=== PATIENT | female | born 1990 | race African-American/Black ===

== ENCOUNTER 2020-08-04 11:03 | Emergency (ER) | payer OTHER ==
[~2020-08-04] VITALS: Ht 170.2 cm; Wt 122.7 kg
[2020-08-04 12:34] LABS: GLUCOSE, URINE (UA) MANUAL NEGATIVE (NEGATIVE); KETONE, URINE MANUAL OBSCURED mg/dL (NEGATIVE)
[2020-08-04 12:35] LABS: BILIRUBIN, URINE MANUAL OBSCURED (NEGATIVE); UROBILINOGEN, URINE MANUAL OBSCURED mg/dl (NORMAL)
[2020-08-04] MEDS ORDERED: NS 1,000 ML IV ONE (12:35)
[2020-08-04 12:43] LABS: RBC, URINE TNTC /hpf (0-3); SQUAMOUS EPITHELIAL CELL URINE SMALL AMOUNT /hpf (SMALL AMT)
[2020-08-04 12:44] LABS: BACTERIA, URINE MOD AMOUNT; HYALINE CAST, URINE NONE SEEN /lpf (0-1); MUCUS, URINE LARGE AMOUNT (NEGATIVE)
[2020-08-04 13:12] LABS: BASO % 0.2 % (0.0-1.0); EOS # 0.3 10^3/uL (0.0-0.5); EOS % 3.5 % (0.0-3.0); HEMATOCRIT 38.8 % (36.0-47.0); HEMOGLOBIN 12.5 g/dl (12.0-15.5); LYMPH # 1.8 10^3/uL (1.5-5.0); LYMPH % 22.8 % (24.0-44.0); MEAN CORPUSCULAR HEMOGLOBIN 29.2 pg (27.0-33.0); MEAN CORPUSCULAR HGB CONC 32.2 g/dl (32.0-36.5); MEAN CORPUSCULAR VOLUME 90.7 fl (80.0-96.0); MONO # 0.5 10^3/uL (0.0-0.8); MONO % 6.6 % (2.0-8.0); NEUTROPHILS # 5.4 10^3/uL (1.5-8.5); NEUTROPHILS % 66.8 % (36.0-66.0); PLATELET COUNT, AUTOMATED 274 10^3/uL (150-450); RED BLOOD COUNT 4.28 10^6/uL (4.00-5.40); WHITE BLOOD COUNT 8.1 10^3/uL (4.0-10.0)
[2020-08-04 13:23] LABS: INR 1.04; PROTHROMBIN TIME 13.8 SECONDS (12.5-14.3)
[2020-08-04 13:24] LABS: PARTIAL THROMBOPLASTIN TIME 28.4 SECONDS (24.2-38.5)
[2020-08-04 13:47] LABS: RSV AMPLIFICATION NEGATIVE (NEGATIVE)
[2020-08-04 13:49] LABS: ALBUMIN 3.8 GM/DL (3.2-5.2); ALT/SGPT 39 U/L (12-78); AMYLASE 44 U/L (25-115); BILIRUBIN,DIRECT 0.2 MG/DL (0.0-0.2); BILIRUBIN,TOTAL 0.6 MG/DL (0.2-1.0); CK-MB VALUE MASS < 1.0 NG/ML (<3.6); CPK CREATINE PHOSPHOKINASE 126 U/L (26-192); LIPASE 84 U/L (73-393); MB/CK RELATIVE INDEX 0.79 (< OR =4); TOTAL PROTEIN 8.4 GM/DL (6.4-8.2); TROPONIN I < 0.02 NG/ML (< 0.10)
[2020-08-04] MEDS ORDERED: ISOVUE-370 76% 100ML VIAL As Ordered ONE (13:50)
[2020-08-04 14:37] LABS: CHLAMYDIA DNA AMPLIFICATION POSITIVE (NEGATIVE); GC DNA AMPLIFICATION NEGATIVE (NEGATIVE)
--- NOTE | 2020-08-04 14:45 | REP ---
INDICATION: intermittent chest pain, s/p cardiac stents, stopped A/C. COMPARISON: None. TECHNIQUE: CT of the chest with IV contrast. FINDINGS: There are no emboli in the pulmonary trunk or central pulmonary arteries. There are no emboli in the pulmonary artery lobar segment branches. There are no infiltrates or pleural effusions. There is a 7 mm lung nodule in the right upper lobe on image 40. This is a category 3 lung nodule and six-month follow-up chest CT is recommended for further evaluation. There are no other lung nodules or masses. There is no mediastinal or hilar lymph node enlargement. There is no axillary lymphadenopathy. The thoracic aorta is unremarkable. Cardiac size is normal. There are no pericardial effusions. IMPRESSION: There is a 7 mm right upper lobe lung nodule. Follow-up chest CT in 6 months is recommended. Otherwise, essentially negative CT study of the chest. <Electronically signed by Gene Perez > 08/04/20 [id number]
--- NOTE | 2020-08-04 14:52 | REP ---
INDICATION: lower abd pain. COMPARISON: None. TECHNIQUE: CT of the abdomen and pelvis with IV contrast, without bowel contrast. The study is performed contiguously with the chest CT this same date. FINDINGS: The hepatic parenchyma is homogeneous. The gallbladder, pancreas and spleen are normal size and unremarkable. The adrenals and kidneys are unremarkable. The abdominal aorta is unremarkable. There is no periaortic adenopathy or mass. There is an endovascular stent in the right iliac vein compatible with the clinical history of May-Thurner syndrome. The bowel and mesentery are unremarkable. Pelvis: There is a 3.5 cm right adnexal cyst. The left adnexa is unremarkable. Uterus is unremarkable. The bladder is unremarkable. There is no adenopathy or ascites. The pelvic bowel loops are unremarkable. IMPRESSION: There is a 3.5 cm right adnexal cyst. There is an endovascular stent in the right iliac vein, compatible with the clinical history of May-Thurner syndrome. <Electronically signed by Gene Perez > 08/04/20 [id number]
[2020-08-04] MEDS ORDERED: DOXYCYCLINE HYCLATE 100MG TABLET PO ONE (15:15)
[2020-08-04] MEDS ORDERED: DOXY100C37 PO (15:45)
[2020-08-04] MEDS ORDERED: FLAG500T PO (15:45)
--- NOTE | 2020-08-04 16:43 | REP ---
INDICATION: pelvic pain. COMPARISON: Abdomen/pelvis CT performed earlier today. There are no comparison ultrasound studies. TECHNIQUE: Multiple sonographic images of the pelvis including transabdominal, endovaginal and doppler ultrasound. FINDINGS: The uterus is anteverted and normal size measuring 7.9 x 5.1 x 6.3 cm. The endometrium is not thickened measuring 2.5 mm. Right ovary: The right ovary measures 3.2 x 3.8 x 3.3 cm and is normal size. There is a 3.1 x 2.6 x 3.0 cm right ovarian cyst. There is vascular flow in the right ovary with the Doppler resistive index in the parenchymal arteries measuring 0.71. Left ovary: The left ovary could not be visualized by ultrasound at this time. With color Doppler ultrasound there are numerous dilated vessels surrounding the uterus, suggestive of pelvic congestion. These are much more apparent by ultrasound than on the comparison CT. IMPRESSION: There is a 3.1 cm right ovarian cyst. There are numerous dilated vessels surrounding the uterus suggestive of pelvic congestion. These are much more apparent by ultrasound than on the comparison CT. The left ovary could not be visualized. <Electronically signed by Geen Perez > 08/04/20 [id number]
[2020-08-04] MEDS ORDERED: metroNIDAZOLE (FLAGYL) 500MG TABLET PO ONE (16:50)
[2020-08-04] MEDS ORDERED: MACR100C43 PO (16:51)
[2020-08-04] MEDS ORDERED: NITROFURANTOIN (MACROBID) 100 MG CAP PO ONE (16:55)
[2020-08-04 17:07] VITALS: BP 113/83
--- NOTE | 2020-08-04 19:30 | ECGEPIP ---
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
--- NOTE | 2020-08-07 19:26 | ED PDOC ---
Post-Departure Follow-Up certified letter sent to pt re formal read of cta chest and ct abd/p needs fu. o btain pcp who pt establishes w and fax there Flaco De León MD Aug 07, 2020 19:26
== END 2020-08-04 17:11 | disposition home or self-care (01) ==
LOC: M ED 11:03
DX: N39.0 Urinary tract infection, site not specified (principal); R31.9 Hematuria, unspecified; N93.9 Abnormal uterine and vaginal bleeding, unspecified; A74.9 Chlamydial infection, unspecified; N76.0 Acute vaginitis; R91.1 Solitary pulmonary nodule; E27.8 Other specified disorders of adrenal gland; N83.201 Unspecified ovarian cyst, right side; N94.89 Other specified conditions associated with female genital organs and menstrual cycle; I87.1 Compression of vein; Z91.040 Latex allergy status; F17.200 Nicotine dependence, unspecified, uncomplicated
CPT/HCPCS: 71275; 74177; 76830; 76856; 80047; 80076; 81000; 81015; 82150; 82550; 82553; 83690; 84484; 84702; 85025; 85610; 85730; 87086; 87210; 87631; 87661; 93005; 93976; 96360; 96361; 99284; Q9967

== ENCOUNTER → 2020-09-12 | Outpatient (REF) | payer MEDICAID, OTHER ==
[~2020-09-12] MED LIST: DOXY100C37 PO; FLAG500T PO; MACR100C43 PO
[2020-09-12 14:50] LABS: CHOLESTEROL RISK RATIO 2.787 (<5); FREE T4 0.94 NG/DL (0.76-1.46); THYROID STIMULATING HORMONE 1.11 uIU/ML (0.358-3.740)
[2020-09-12 15:51] LABS: HEMOGLOBIN A1c 5.2 %
== END ==
LOC: M PLALAB 10:15
PROVIDERS: ATTEND Advanced Practice Midwife
DX: R63.5 Abnormal weight gain (principal)

== ENCOUNTER → 2020-12-13 | Outpatient (CLI) | payer MEDICAID ==
[~2020-12-13] MED LIST changes: -DOXY100C37 PO; +DOXY1CAP62 PO
--- NOTE | 2020-12-13 14:31 | REP ---
INDICATION: CYST RIGHT OVARY. COMPARISON: Pelvic ultrasound dated 08/04/2020. TECHNIQUE: Multiple ultrasonographic images of the pelvis including transabdominal, endovaginal and Doppler ultrasound. FINDINGS: The uterus is anteverted and slightly enlarged measuring 11.2 x 4.2 x 5.4 cm. There are dilated uterine vessels, as previously. This may represent pelvic congestion in the appropriate clinical setting. The endometrium is not thickened measuring 11 mm. Right ovary: The right ovary measures 3.6 x 2.1 x 1.8 cm and is normal size. There is no dominant mass or cyst. The 3.1 cm right ovarian cyst identified on the comparison ultrasound has involuted. Left ovary: The left ovary measures 2.2 x 2.1 x 1.8 cm and is normal size. There is a dominant follicle measuring 1.8 x 1.6 x 1.5 cm. The left ovary cannot be visualized on the comparison ultrasound. There is vascular flow in both ovaries. The Doppler resistive index in the parenchymal arteries of the right ovary is 0.58 and left ovary 0.53. IMPRESSION: The previous right ovarian cyst has involuted. There is a left ovarian follicle measuring up to 1.8 cm. Dilated uterine vessels surrounding the uterus are again identified with color Doppler imaging. There is may represent pelvic congestion in the appropriate clinical setting. <Electronically signed by Gene Perez > 12/13/20 [id number]
== END ==
LOC: M WHC 13:41
PROVIDERS: ATTEND Advanced Practice Midwife
DX: N83.201 Unspecified ovarian cyst, right side (principal)

== ENCOUNTER 2021-02-08 10:18 | Emergency (ER) | payer MEDICAID ==
[~2021-02-08] VITALS: Ht 170.2 cm; Wt 127.7 kg
[2021-02-08 10:19] VITALS: BP 127/60
== END 2021-02-08 10:26 | disposition left against medical advice (07) ==
LOC: M ED 10:18
DX: Z53.21 Procedure and treatment not carried out due to patient leaving prior to being seen by health care provider (principal)

== ENCOUNTER 2021-02-13 09:34 | Emergency (ER) | payer MEDICAID ==
[~2021-02-13] VITALS: Ht 170.2 cm; Wt 136.4 kg
[2021-02-13] MEDS ORDERED: dexameTHASONE 20MG/5ML VIAL (J1100 PER 1MG) IV ONE (10:10)
[2021-02-13 10:15] VITALS: BP 135/80
[2021-02-13 10:51] LABS: BASO % 0.4 % (0.0-1.0); EOS # 0.4 10^3/uL (0.0-0.5); EOS % 6.3 % (0.0-3.0); HEMATOCRIT 41.4 % (36.0-47.0); HEMOGLOBIN 13.9 g/dl (12.0-15.5); LYMPH % 30.4 % (24.0-44.0); MEAN CORPUSCULAR HEMOGLOBIN 29.4 pg (27.0-33.0); MEAN CORPUSCULAR HGB CONC 33.6 g/dl (32.0-36.5); MEAN CORPUSCULAR VOLUME 87.5 fl (80.0-96.0); MONO # 0.5 10^3/uL (0.0-0.8); MONO % 7.6 % (2.0-8.0); NEUTROPHILS # 3.7 10^3/uL (1.5-8.5); PLATELET COUNT, AUTOMATED 338 10^3/uL (150-450); RED BLOOD COUNT 4.73 10^6/uL (4.00-5.40); WHITE BLOOD COUNT 6.7 10^3/uL (4.0-10.0)
[2021-02-13] MEDS: COMBIVENT RESPIMAT 100-20MCG INHALER 4GM INH SCH ×3 (11:01→12:51)
[2021-02-13 11:06] LABS: INR 1.05; PROTHROMBIN TIME 14.2 SECONDS (12.7-14.5)
[2021-02-13 11:07] LABS: PARTIAL THROMBOPLASTIN TIME 31.4 SECONDS (25.9-37.0)
--- OUTSIDE RECORDS SUMMARY | 2021-02-13 11:11 | CCD ---
Author Author [facility] Organization [facility] Address Unknown Phone Unavailable Care Team Providers Care Oxygen Equipment Technician Name Role Phone Denice Zhao Unavailable PROBLEMS Type Condition ICD9-CM Code ZMK60-AI Code Onset Dates Condition S tatus W/U Status Risk SNOMED Code Notes Problem Pelvic congestion syndrome N94.89 Active confirmed 83189884 ALLERGIES Allergen (clinical drug ingredient) Drug/Non Drug Allergy do cumented on EMR Reaction Allergy Type Onset Date Status Latex latex rash Non Drug Allergy Active ENCOUNTERS from 1990 to 2020-12-30 Encounter Location Date Provider Diagnosis [facility] [address] [place] [address] [place] [address] Dec, Denice Zhao IMMUNIZATIONS No Information SOCIAL HISTORY Tobacco Use: Social History Observation Description Date Details (start date - stop date) Current Smoker Sex Assigned At : Social History Observation Description Sex Assigned At Unknown Domestic Violence: Question Answer Notes Status: No history of abuse Tobacco Use: Question Answer Notes Are you a: current smoker REASON FOR REFERRAL No Information VITAL SIGNS No information MEDICATIONS Medication SIG (Take, Route, Frequency, Duration) Notes Start Da te End Date Status Nexplanon Active PROCEDURES No Information RESULTS No Results REASON FOR VISIT Results MEDICAL (GENERAL) HISTORY Type Description Date Medical History ovarian cyst Medical History may thurner-has multiple stents Surgical History cardiac stent Hospitalization History surgery Goals Section No Information Health Concerns No Information MEDICAL EQUIPMENT No Information MENTAL STATUS No Information FUNCTIONAL STATUS No Information ASSESSMENTS No Information PLAN OF TREATMENT No Information Insurance Providers Payer Name Payer Address Payer Phone Insured Name Patient Relati onship to Insured Coverage Start Date Coverage End Date MEDICAID [place] [address] [place] [address] AMY GARCIA self
--- OUTSIDE RECORDS SUMMARY | 2021-02-13 11:12 | CCD ---
Author Author [facility] Organization [facility] Address Unknown Phone Unavailable Support Name Relationship Address Phone JADA Next Of Kin [phone] [place] [address] SK* Next Of Kin [address] [place] [address] DIS[place] [address] [place] [address] Unavailable Re-disclosure Warning The records that you are about to access may contain information from federally-assisted alcohol or drug abuse programs. If such information is present, then the following federally mandated warning applies: This information has been disclosed to you from records protected by federal confidentiality rules (42 CFR part 2). The federal rules prohibit you from making any further disclosure of this information unless further disclosure is expressly permitted by the written consent of the person to whom it pertains or as otherwise permitted by 42 CFR part 2. A general authorization for the release of medical or other information is NOT sufficient for this purpose. The Federal rules restrict any use of the information to criminally investigate or prosecute any alcohol or drug abuse patient.The records that you are about to access may contain highly sensitive health information, the redisclosure of which is protected by Article 27-F of the [facility] Public Health law. If you continue you may have access to information: Regarding HIV / AIDS; Provided by facilities licensed or operated by the [facility] Office of Mental Health; or Provided by the [facility] Office for People With Developmental Disabilities. If such information is present, then the following [facility] mandated warning applies: This information has been disclosed to you from confidential records which are protected by state law. State law prohibits you from making any further disclosure of this information without the specific written consent of the person to whom it pertains, or as otherwise permitted by law. Any unauthorized further disclosure in violation of state law may result in a fine or longterm sentence or both. A general authorization for the release of medical or other information is NOT sufficient authorization for further disc losure. Encounters Encounter Providers Location Date Indications Data Source(s ) Unknown [address] [facility] [address] 12/26/2020 12:00:00 AM EDT eCW1 ([facility]) Outpatient [address] [facility] [address] 09/12/2020 12:00:00 AM EDT eCW1 ([facility]) Medications Medication Brand Name Start Date Product Form Dose Route Admi nistrative Instructions Pharmacy Instructions Status Indications Reaction Description Data Source(s) Metronidazole 500 MG Oral Tablet METRONIDAZOLE 08/05/2020 12:0 0:00 AM EDT tablet 14 TAKE ONE TABLET BY MOUTH TWICE A DAY TAKE ONE TABLET BY MOUTH TWICE A DAY SOLD: 08/05/2020 [facility] 100 mg 08/05/2020 12:00:00 AM EDT capsule 10 TAKE ONE CAPSULE BY MOUTH TWICE A DAY TAKE ONE CAPSULE BY MOUTH TWICE A DAY SOLD: 08/05/2020 [facility] 100 mg 08/05/2020 12:00:00 AM EDT capsule 14 TAKE ONE CAPSULE BY MOUTH EVERY 12 HOURS TAKE ONE CAPSULE BY MOUTH EVERY 12 HOURS SOLD: 08/05/2020 [facility] Insurance Providers Payer name Policy type / Coverage type Policy ID Covered republican ID Covered republican's relationship to [place] Policy [place] Plan Information [employer] [id number] SP [id number] [employer] [id number] SP [id number] [facility] MEDICAID [id number] SP [id number] Problems, Conditions, and Diagnoses Code Display Name Description Problem Type Effective Dates Data Source(s) N94.89 [id number] Pelvic congestion syndrome Problem 12:00:00 AM EDT eCW1 ([facility]) Surgeries/Procedures Procedure Description Date Indications Data Source(s) Medication: 1% Lidocaine with Epinephrine Dilutent 09/12/2020 12:00:00 AM EDT eCW1 ([facility]) Results ID Date Data Source [id number] 09/16/2020 02:41:00 PM EDT [facility] Name Value Range Interpretation Code Description Data Elle rce(s) Supporting Document(s) SARS-CoV-2 (COVID-19) RNA [Presence] in Respiratory specimen by RAYSA with probe detection Not Detected [facility] This lab was ordered by [facility] and reported by [employer] ID Date Data Source LIPID PANEL (CARDIAC RISK) 09/12/2020 12:00:00 AM EDT eCW1 ( [facility]) Name Value Range Interpretation Code Description Data Elle rce(s) Supporting Document(s) Cholesterol in HDL [Moles/volume] in Serum or Plasma 47 >40 HDL CHOLESTEROL eCW1 ([facility]) Cholesterol in LDL [Mass/volume] in Serum or Plasma by calculation 73 <100 LDL CHOLESTEROL eCW1 ([facility]) Cholesterol [Moles/volume] in Serum or Plasma 131 <200 CHOLESTEROL LEVEL eCW1 ([facility]) Triglyceride [Mass/volume] in Serum or Plasma by calculation 57 <150 TRIGLYCERIDES LEVEL eCW1 ([facility]) 2.787 <5 CHOLESTEROL RISK RATIO eCW1 ([facility]) 84 NON-HDL-C eCW1 ([facility]) ID Date Data Source [id number] 09/12/2020 12:00:00 AM EDT eCW1 ([facility]) Name Value Range Interpretation Code Description Data Elle rce(s) Supporting Document(s) Hemoglobin A1c/Hemoglobin.total in Blood 5.2 HEMOGLOBIN A1c eCW1 ([facility]) ID Date Data Source FREE T4 & TSH PANEL 09/12/2020 12:00:00 AM EDT eCW1 ([facility]) Name Value Range Interpretation Code Description Data Elle rce(s) Supporting Document(s) 1.110 0.358-3.740 THYROID STIMULATING HORM ONE eCW1 ([facility]) 0.94 0.76-1.46 FREE T4 eCW1 ([facility]) ID Date Data Source [id number] 09/09/2020 01:54:00 PM EDT [facility] Name Value Range Interpretation Code Description Data Elle rce(s) Supporting Document(s) SARS-CoV-2 (COVID-19) RNA [Presence] in Respiratory specimen by RAYSA with probe detection Not Detected [facility] This lab was ordered by [facility] and reported by [employer]. ID Date Data Source [id number] 09/05/2020 12:00:00 AM EDT [facility] Name Value Range Interpretation Code Description Data Elle rce(s) Supporting Document(s) SARS coronavirus 2 Ag NEGATIVE [facility] This lab was ordered by [facility] and reported by [facility] [employer]. ID Date Data Source [id number] 08/29/2020 12:00:00 AM EDT [facility] Name Value Range Interpretation Code Description Data Elle rce(s) Supporting Document(s) SARS coronavirus 2 Ag NEGATIVE [facility] This lab was ordered by [facility] and reported by [facility] [employer]. ID Date Data Source [id number] 08/26/2020 06:09:00 AM EDT [facility] Name Value Range Interpretation Code Description Data Elle rce(s) Supporting Document(s) SARS-CoV-2 (COVID-19) RNA [Presence] in Respiratory specimen by RAYSA with probe detection Not Detected [facility] This lab was ordered by [facility] and reported by [employer]. ID Date Data Source [id number] 08/19/2020 03:28:00 PM EDT [facility] Name Value Range Interpretation Code Description Data Elle rce(s) Supporting Document(s) SARS-CoV-2 (COVID-19) RNA [Presence] in Respiratory specimen by RAYSA with probe detection Not Detected [facility] This lab was ordered by [facility] and reported by [employer] ID Date Data Source [id number] 08/07/2020 01:00:00 PM EDT [facility] Name Value Range Interpretation Code Description Data Elle rce(s) Supporting Document(s) SARS-CoV-2 (COVID-19) RNA [Presence] in Respiratory specimen by RAYSA with probe detection Not Detected [facility] This lab was ordered by [facility] and reported by [employer] ID Date Data Source [id number] 08/04/2020 12:52:00 PM EDT [facility] Name Value Range Interpretation Code Description Data Elle rce(s) Supporting Document(s) SARS coronavirus 2 RNA [Presence] in Res piratory specimen by RAYSA with probe detection NEGATIVE [facility] This lab was ordered by [facility] a nd reported by [facility]. ID Date Data Source [id number] 07/29/2020 07:00:00 AM EDT [facility] Name Value Range Interpretation Code Description Data Elle rce(s) Supporting Document(s) SARS coronavirus 2 RNA Not Detected [facility] This lab was ordered by [facility] and reported by [facility]. ID Date Data Source [id number] 07/25/2020 12:00:00 AM EDT [facility] Name Value Range Interpretation Code Description Data Elle rce(s) Supporting Document(s) SARS coronavirus 2 Ag NEGATIVE [facility] This lab was ordered by [facility] and reported by [facility]. ID Date Data Source [id number] 07/22/2020 05:20:00 AM EDT [facility] Name Value Range Interpretation Code Description Data Elle rce(s) Supporting Document(s) SARS coronavirus 2 RNA Not Detected [facility] This lab was ordered by [facility] and reported by [facility]. ID Date Data Source [id number] 07/17/2020 11:42:00 AM EDT [facility] Name Value Range Interpretation Code Description Data Elle rce(s) Supporting Document(s) SARS coronavirus 2 RNA Not Detected [facility] This lab was ordered by [facility] and reported by [facility]. ID Date Data Source [id number] 07/11/2020 12:00:00 AM EST [facility] Name Value Range Interpretation Code Description Data Elle rce(s) Supporting Document(s) SARS coronavirus 2 Ag NEGATIVE [facility] This lab was ordered by [facility] and reported by [facility]. ID Date Data Source [id number] 07/08/2020 07:39:00 AM EST [facility] Name Value Range Interpretation Code Description Data Elle rce(s) Supporting Document(s) SARS coronavirus 2 RNA Not Detected [facility] This lab was ordered by [facility] and reported by [facility]. ID Date Data Source [id number] 07/01/2020 12:01:00 PM EST [facility] Name Value Range Interpretation Code Description Data Elle rce(s) Supporting Document(s) SARS coronavirus 2 RNA Not Detected [facility] This lab was ordered by [facility] and reported by [facility]. ID Date Data Source [id number] 06/27/2020 12:00:00 AM EST [facility] Name Value Range Interpretation Code Description Data Elle rce(s) Supporting Document(s) SARS coronavirus 2 Ag NEGATIVE [facility] This lab was ordered by [facility] and reported by [facility]. ID Date Data Source [id number] 06/24/2020 08:00:00 AM EST [facility] Name Value Range Interpretation Code Description Data Elle rce(s) Supporting Document(s) SARS coronavirus 2 RNA Not Detected [facility] This lab was ordered by [facility] and reported by [facility]. ID Date Data Source [id number] 06/20/2020 12:00:00 AM EST [facility] Name Value Range Interpretation Code Description Data Elle rce(s) Supporting Document(s) SARS coronavirus 2 Ag NEGATIVE [facility] This lab was ordered by [facility] and reported by [facility]. ID Date Data Source [id number] 06/17/2020 01:00:00 PM EST [facility] Name Value Range Interpretation Code Description Data Elle rce(s) Supporting Document(s) SARS coronavirus 2 RNA Not Detected [facility] This lab was ordered by [facility] and reported by [facility]. ID Date Data Source [id number] 06/13/2020 12:00:00 AM EST [facility] Name Value Range Interpretation Code Description Data Elle rce(s) Supporting Document(s) SARS coronavirus 2 Ag NEGATIVE [facility] This lab was ordered by [facility] and reported by [facility]. ID Date Data Source [id number] 06/10/2020 06:00:00 AM EST [facility] Name Value Range Interpretation Code Description Data Elle rce(s) Supporting Document(s) SARS coronavirus 2 RNA Not Detected [facility] This lab was ordered by [facility] and reported by [facility]. ID Date Data Source [id number] 06/06/2020 12:00:00 AM EST [facility] Name Value Range Interpretation Code Description Data Elle rce(s) Supporting Document(s) SARS coronavirus 2 Ag [facility] This lab was ordered by [facility] and reported by [facility]. ID Date Data Source [id number] 06/03/2020 02:30:00 PM EST [facility] Name Value Range Interpretation Code Description Data Elle rce(s) Supporting Document(s) SARS coronavirus 2 RNA Not Detected [facility] This lab was ordered by [facility] and reported by [facility]. ID Date Data Source [id number] 05/30/2020 12:00:00 AM EST [facility] Name Value Range Interpretation Code Description Data Elle rce(s) Supporting Document(s) SARS coronavirus 2 Ag NEGATIVE [facility] This lab was ordered by [facility] and reported by [facility]. ID Date Data Source [id number] 05/27/2020 12:00:00 PM EST [facility] Name Value Range Interpretation Code Description Data Elle rce(s) Supporting Document(s) SARS coronavirus 2 RNA Not Detected [facility] This lab was ordered by [facility] and reported by [facility]. ID Date Data Source [id number] 05/23/2020 12:00:00 AM EST [facility] Name Value Range Interpretation Code Description Data Elle rce(s) Supporting Document(s) SARS coronavirus 2 Ag Negative [facility] This lab was ordered by [facility] and reported by [facility]. ID Date Data Source [id number] 05/20/2020 02:00:00 PM EST [facility] Name Value Range Interpretation Code Description Data Elle rce(s) Supporting Document(s) SARS coronavirus 2 RNA Not Detected [facility] This lab was ordered by [facility] and reported by [facility]. ID Date Data Source [id number] 05/16/2020 12:00:00 AM EST [facility] Name Value Range Interpretation Code Description Data Elle rce(s) Supporting Document(s) SARS-CoV2 Rapid Antigen Negative [facility] This lab was ordered by [facility] and reported by [facility]. ID Date Data Source [id number] 05/13/2020 03:00:00 PM EST [facility] Name Value Range Interpretation Code Description Data Elle rce(s) Supporting Document(s) SARS coronavirus 2 RNA Not Detected [facility] This lab was ordered by [facility] and reported by [facility]. ID Date Data Source [id number] 05/06/2020 05:30:00 AM EST [facility] Name Value Range Interpretation Code Description Data Elle rce(s) Supporting Document(s) SARS coronavirus 2 RNA Not Detected [facility] This lab was ordered by [facility] and reported by [facility]. ID Date Data Source [id number] 04/29/2020 11:30:00 AM EST [facility] Name Value Range Interpretation Code Description Data Elle rce(s) Supporting Document(s) SARS coronavirus 2 RNA [facility] This lab was ordered by [facility] and reported by [facility]. ID Date Data Source [id number] 04/22/2020 10:00:00 AM EST [facility] Name Value Range Interpretation Code Description Data Lele rce(s) Supporting Document(s) SARS coronavirus 2 RNA [facility] This lab was ordered by [facility] and reported by [facility]. ID Date Data Source [id number] 04/15/2020 10:00:00 AM EST [facility] Name Value Range Interpretation Code Description Data Elle rce(s) Supporting Document(s) SARS coronavirus 2 RNA [facility] This lab was ordered by [facility] and reported by [facility]. ID Date Data Source [id number] 04/08/2020 01:18:00 PM EST [facility] Name Value Range Interpretation Code Description Data Elle rce(s) Supporting Document(s) SARS coronavirus 2 RNA [facility] This lab was ordered by [facility] and reported by [facility]. ID Date Data Source [id number] 04/01/2020 07:27:00 AM EST [facility] Name Value Range Interpretation Code Description Data Elle rce(s) Supporting Document(s) SARS coronavirus 2 RNA [facility] This lab was ordered by [facility] and reported by [facility]. ID Date Data Source [id number] 03/29/2020 12:00:00 AM EST [facility] Name Value Range Interpretation Code Description Data Elle rce(s) Supporting Document(s) SARS-CoV2 Rapid Antigen [facility] This lab was ordered by [facility] and reported by [facility]. ID Date Data Source [id number] 03/25/2020 01:45:00 PM EST [facility] Name Value Range Interpretation Code Description Data Elle rce(s) Supporting Document(s) SARS coronavirus 2 RNA [facility] This lab was ordered by [facility] and reported by [facility]. ID Date Data Source [id number] 03/18/2020 07:00:00 AM EST [facility] Name Value Range Interpretation Code Description Data Elle rce(s) Supporting Document(s) SARS coronavirus 2 RNA [facility] This lab was ordered by [facility] and reported by [facility]. ID Date Data Source [id number] 03/11/2020 10:00:00 AM EST [facility] Name Value Range Interpretation Code Description Data Elle rce(s) Supporting Document(s) SARS coronavirus 2 RNA [facility] This lab was ordered by [facility] and reported by [facility]. ID Date Data Source [id number] 03/04/2020 06:00:00 AM EST [facility] Name Value Range Interpretation Code Description Data Elle rce(s) Supporting Document(s) SARS coronavirus 2 RNA [facility] This lab was ordered by [facility] and reported by [facility]. ID Date Data Source [id number] 02/26/2020 01:00:00 PM EDT [facility] Name Value Range Interpretation Code Description Data Elle rce(s) Supporting Document(s) SARS coronavirus 2 RNA [facility] This lab was ordered by [facility] and reported by [facility]. ID Date Data Source [id number] 02/12/2020 05:30:00 AM EDT [facility] Name Value Range Interpretation Code Description Data Elle rce(s) Supporting Document(s) SARS coronavirus 2 RNA [facility] This lab was ordered by [facility] and reported by [facility]. ID Date Data Source [id number] 02/05/2020 06:30:00 AM EDT [facility] Name Value Range Interpretation Code Description Data Elle rce(s) Supporting Document(s) SARS coronavirus 2 RNA [facility] This lab was ordered by [facility] and reported by [facility]. ID Date Data Source [id number] 01/29/2020 08:00:00 AM EDT [facility] Name Value Range Interpretation Code Description Data Elle rce(s) Supporting Document(s) SARS coronavirus 2 RNA [facility] This lab was ordered by [facility] and reported by [facility]. ID Date Data Source [id number] 01/15/2020 05:30:00 AM EDT [facility] Name Value Range Interpretation Code Description Data Elle rce(s) Supporting Document(s) SARS coronavirus 2 RNA [facility] This lab was ordered by [facility] and reported by [facility]. ID Date Data Source [id number] 01/10/2020 06:00:00 AM EDT [facility] Name Value Range Interpretation Code Description Data Elle rce(s) Supporting Document(s) SARS coronavirus 2 RNA [facility] This lab was ordered by [facility] and reported by [facility]. ID Date Data Source [id number] 01/01/2020 06:24:00 AM EDT [facility] Name Value Range Interpretation Code Description Data Elle rce(s) Supporting Document(s) SARS coronavirus 2 RNA [facility] This lab was ordered by [facility] and reported by [facility]. ID Date Data Source [id number] 12/25/2019 08:17:00 AM EDT [facility] Name Value Range Interpretation Code Description Data Elle rce(s) Supporting Document(s) SARS coronavirus 2 RNA [facility] This lab was ordered by [facility] and reported by [facility]. ID Date Data Source [id number] 12/18/2019 06:12:00 AM EDT [facility] Name Value Range Interpretation Code Description Data Elle rce(s) Supporting Document(s) SARS coronavirus 2 RNA [facility] This lab was ordered by [facility] and reported by [facility]. Procedure Social History Code Duration Value Status Description Data Source(s ) Smoking 10/13/2020 12:00:00 AM EDT Current Smoker completed Curre nt Smoker eCW1 ([facility]) Smoking 09/12/2020 12:00:00 AM EDT Current Smoker completed Curre nt Smoker eCW1 ([facility]) Vital Signs ID Date Data Source UNK Name Value Range Interpretation Code Description Data Source(s) Body weight 279.4 [lb_av] 279.4 [lb_av] eCW1 ([facility]) Body height 67 [in_i] 67 [in_i] W1 ([facility]) Body mass index (BMI) [Ratio] 43.76 kg/m2 43.76 kg/m2 W1 ([facility]) Systolic blood pressure 122 mm[Hg] 122 mm[Hg] e CW1 ([facility]) Diastolic blood pressure 72 mm[Hg] 72 mm[Hg] eCW1 ([facility])
[2021-02-13 11:20] LABS: HCG, SERUM QUALITATIVE NEGATIVE (NEGATIVE)
[2021-02-13 11:27] LABS: ALBUMIN 3.6 GM/DL (3.2-5.2); ALT/SGPT 19 U/L (12-78); BILIRUBIN,DIRECT 0.2 MG/DL (0.0-0.2); BILIRUBIN,TOTAL 0.5 MG/DL (0.2-1.0); BLOOD UREA NITROGEN 6 MG/DL (7-18); CALCIUM LEVEL 8.8 MG/DL (8.5-10.1); CARBON DIOXIDE LEVEL 27 MEQ/L (21-32); CHLORIDE LEVEL 106 MEQ/L (98-107); CK-MB VALUE MASS < 1.0 NG/ML (<3.6); CPK CREATINE PHOSPHOKINASE 275 U/L (26-192); GLOMERULAR FILTRATION RATE > 60.0 (>60); GLUCOSE, FASTING 72 MG/DL (70-100); MB/CK RELATIVE INDEX 0.36 (< OR =4); NT-PRO BNP 9 PG/ML (<125); SODIUM LEVEL 138 MEQ/L (136-145); THYROXINE (T4) 10.2 UG/DL (4.5-12.0); TOTAL PROTEIN 8.4 GM/DL (6.4-8.2); TROPONIN I < 0.02 NG/ML (< 0.10)
--- NOTE | 2021-02-13 11:59 | REP ---
INDICATION: DYSPNEA/COUGH COMPARISON: None. TECHNIQUE: Portable AP view of the chest FINDINGS: The mediastinum and cardiac silhouette are within normal limits for portable technique. The lung jean-baptiste are clear without acute consolidation, effusion, or pneumothorax. Skeletal structures are intact. IMPRESSION: No acute cardiopulmonary process appreciated. <Electronically signed by Reji Kolb > 02/13/21 [id number]
[2021-02-13] MEDS ORDERED: ISOVUE-370 76% 100ML VIAL As Ordered ONE (12:15)
--- NOTE | 2021-02-13 13:16 | REP ---
INDICATION: shortness of breath, h/o dvt COMPARISON: None. TECHNIQUE: Axial contrast enhanced images from the thoracic inlet to the upper abdomen using pulmonary embolus technique with multiplanar re-formations. 75 ml Isovue 370 intravenous contrast material administered without complication. This CT examination was performed using the following dose reduction techniques: Automated exposure control, adjustment of mA and/or kv according to the patient's size, and use of iterative reconstruction technique. FINDINGS: Satisfactory enhancement of the pulmonary vasculature is achieved and no filling defects are identified to suggest pulmonary embolus. Further evaluation of the mediastinum demonstrates normal thoracic aorta, heart and pericardium. The bilateral lung jean-baptiste are well aerated and without consolidation, pleural effusion or pneumothorax. Tracheobronchial tree is patent. Stable 7 mm noncalcified nodule along the subpleural right upper lobe (series 402; image 36). Few small 3-4 mm perifissural/subpleural nodules noted in the left lower lobe are also identified and stable. No adenopathy noted. Surrounding musculoskeletal structures intact IMPRESSION: No evidence for pulmonary embolus. No acute mediastinal or pleural parenchymal process. Few scattered stable noncalcified pulmonary nodules up to 7 mm. 12 month follow-up examination may be considered to confirm stability/benignity. <Electronically signed by Reji Kolb > 02/13/21 [id number]
[2021-02-13] MEDS ORDERED: XARE15TA PO (14:27)
[2021-02-13] MEDS ORDERED: PRED20TA PO (14:29)
[2021-02-13] MEDS ORDERED: PROV108A INH (14:29)
--- NOTE | 2021-02-14 08:03 | ECGEPIP ---
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
== END 2021-02-13 14:41 | disposition home or self-care (01) ==
LOC: EDBD 09:34 → M ED 09:34
DX: J45.21 Mild intermittent asthma with (acute) exacerbation (principal); R91.8 Other nonspecific abnormal finding of lung field; Z91.040 Latex allergy status
CPT/HCPCS: 71045; 71275; 80048; 80076; 82550; 82553; 83605; 83880; 84436; 84443; 84484; 84703; 85025; 85610; 85730; 87040; 87798; 93005; 93041; 94640; 94760; 96374; 99284; J1100; Q9967

== ENCOUNTER 2021-04-29 12:04 | Emergency (ER) | payer MEDICAID ==
[~2021-04-29] VITALS: Ht 170.2 cm; Wt 129.1 kg
[~2021-04-29 12:04] MED LIST changes: +DOXY-443 PO; -DOXY1CAP62 PO; +PRED20TA PO; +PROV108A INH; +XARE15TA PO
[2021-04-29] MEDS ORDERED: IBUP200T46 PO (12:23)
[2021-04-29] MEDS ORDERED: PROV108A INH (14:01)
[2021-04-29 14:08] VITALS: BP 127/86
== END 2021-04-29 14:11 | disposition home or self-care (01) ==
LOC: M ED 12:04
DX: U07.1 COVID-19 (principal); I87.1 Compression of vein; Z91.040 Latex allergy status; Z79.01 Long term (current) use of anticoagulants

== ENCOUNTER → 2021-05-07 | Outpatient (CLI) | payer MEDICAID ==
[~2021-05-07] MED LIST changes: +IBUP200T46 PO
--- NOTE | 2021-05-07 16:08 | REP ---
INDICATION: COVID-19. COMPARISON: 02/13/2021 FINDINGS: The superior mediastinal structures are midline. The cardiac silhouette is unremarkable in size, shape, and position. The diaphragmatic surfaces of the lungs are regular, and the costophrenic angles are clear. The pulmonary jean-baptiste are clear. The imaged osseous structures are intact. IMPRESSION: There is no acute cardiopulmonary disease. <Electronically signed by Roel Burgos > 05/07/21 [id number]
== END ==
LOC: M PLAIMG 15:39
PROVIDERS: ATTEND Physician Assistant
DX: U07.1 COVID-19 (principal)

== ENCOUNTER 2021-05-24 17:53 | Emergency (ER) | payer MEDICAID ==
[~2021-05-24] VITALS: Ht 170.2 cm; Wt 127.3 kg
[2021-05-24 18:06] VITALS: BP 131/60
[2021-05-24] MEDS ORDERED: ALBUTEROL 90 MCG/ACT 8GM HFA INHALER INH ONE (18:10)
[2021-05-24] MEDS ORDERED: PROV108A INH (18:44)
[2021-05-24] MEDS ORDERED: PRED20TA PO (18:44)
== END 2021-05-24 18:50 | disposition home or self-care (01) ==
LOC: EDBD 17:53 → M ED 17:53
DX: J45.901 Unspecified asthma with (acute) exacerbation (principal); Z86.16 Personal history of COVID-19; Z91.040 Latex allergy status; Z79.899 Other long term (current) drug therapy

== ENCOUNTER 2021-09-10 12:35 | Emergency (ER) | payer MEDICAID, OTHER ==
[~2021-09-10] VITALS: Ht 170.2 cm; Wt 131.8 kg
[2021-09-10] MEDS ORDERED: thera-flu PO (12:59)
[2021-09-10] MEDS ORDERED: MUCI120T PO (14:58)
[2021-09-10] MEDS ORDERED: ONDA4TAB6 PO (14:58)
[2021-09-10] MEDS ORDERED: BENZ200C70 PO (14:58)
[2021-09-10] MEDS ORDERED: PROAAER10 INH (14:58)
[2021-09-10 15:13] VITALS: BP 121/74
== END 2021-09-10 15:15 | disposition home or self-care (01) ==
LOC: M ED 12:35
DX: J09.X2 Influenza due to identified novel influenza A virus with other respiratory manifestations (principal); R06.00 Dyspnea, unspecified; R05.9 Cough, unspecified; Z91.040 Latex allergy status; Z79.899 Other long term (current) drug therapy

== ENCOUNTER → 2021-09-16 | Outpatient (CLI) | payer MEDICAID ==
[~2021-09-16] MED LIST changes: +BENZ200C70 PO; +MUCI120T PO; +ONDA4TAB6 PO; +PROAAER10 INH; +thera-flu PO
== END ==
LOC: M WHC 12:51
PROVIDERS: ATTEND Physician Assistant
DX: N63.20 Unspecified lump in the left breast, unspecified quadrant (principal); Z80.3 Family history of malignant neoplasm of breast
CPT/HCPCS: 76641; 77066; G0279

== ENCOUNTER 2021-11-19 09:57 | Emergency (ER) | payer BC, MEDICAID ==
[~2021-11-19] VITALS: Ht 170.2 cm; Wt 132.1 kg
[2021-11-19] MEDS ORDERED: ACET-683 PO (11:25)
[2021-11-19] MEDS ORDERED: traMADol 50 MG TAB PO ONE (11:50)
[2021-11-19] MEDS ORDERED: TRAM50TA2 PO (11:51)
[2021-11-19] MEDS ORDERED: ANBE20GE TOP (11:51)
[2021-11-19] MEDS ORDERED: CLIN-250 PO (11:52)
[2021-11-19 12:10] VITALS: BP 135/76
== END 2021-11-19 12:05 | disposition home or self-care (01) ==
LOC: M ED 09:57
DX: K02.9 Dental caries, unspecified (principal); K08.89 Other specified disorders of teeth and supporting structures; Z79.51 Long term (current) use of inhaled steroids; Z79.899 Other long term (current) drug therapy; Z91.040 Latex allergy status

== ENCOUNTER → 2024-11-03 | Outpatient (RCR) ==
[~2024-11-03] MED LIST changes: +ACET-683 PO; +ALBU6.7H6 INH; +ANBE20GE TOP; +CLIN-250 PO; +DOXY-441 PO; -DOXY-443 PO; +ONDA-282 PO; -ONDA4TAB6 PO; -PROV108A INH; +TRAM50TA2 PO
== END ==
LOC: M EMPSSV 10-10 08:11 → EDUNIT# 10-10 08:11
PROVIDERS: ATTEND Family Medicine
DX: Z11.52 Encounter for screening for COVID-19 (principal)